=== PATIENT | male | born 1970 | race Caucasian/White ===

== ENCOUNTER 2022-12-30 10:45 | Inpatient (IN) | payer OTHER ==
[2022-12-30] MEDS ORDERED: Ondansetron PF 4 MG/2 ML Vial ONE (11:11)
[2022-12-30] MEDS ORDERED: Morphine 4 MG/ML VIAL ONE ×3 (11:11→22:18)
[2022-12-30 11:24] LABS: #Eosinphils 0.3 thou/uL (0.0-0.7); #Lymphocytes 2.6 thou/uL (1.20-3.40); #Monocytes 1.1 thou/uL (0.11-0.59); #Neutrophils 5.4 thou/uL (1.40-6.50); %Basophils 0.2 % (0.0-1.0); %Lymphocytes 27.5 % (21.0-51.0); %Monocytes 11.9 % (0.0-10.0); %Neutrophils 57.5 % (42.0-75.0); Hemoglobin 14.8 g/dL (14.0-18.0); Mean Corpuscular HGB CONC 34.2 g/dL (32.0-36.0); Mean Corpuscular Hemoglobin 32.7 pg (27.0-31.0); Mean Corpuscular Volume 95.6 fl (78.0-98.0); Mean Platelet Volume 7.9 fL (7.4-10.4); Platelet Count 178 10x3/uL (130-400); RBC Distribution Width 12.3 % (11.5-14.5); Red Blood Cell (RBC) Count 4.53 mill/uL (4.70-6.10); White Blood Cell (WBC) Count 9.3 10x3/uL (4.8-10.8)
[2022-12-30 11:37] LABS: ALT (SGPT) 49 U/L (8-55); AST (SGOT) 38 U/L (5-34); Albumin 4.3 g/dL (3.5-5.0); Alkaline Phosphatase 198 U/L (40-110); Anion Gap 12 mmol/L (10-20); BUN (Urea Nitrogen) 18 mg/dL (8.4-25.7); Bilirubin, Total 0.3 mg/dL (0.2-1.2); Calc. Creatinine Clearance 0 mL/min (70-130); Calcium 9.3 mg/dL (7.8-10.44); Carbon Dioxide 24 mmol/L (22-29); Chloride 105 mmol/L (98-107); Estimated GFR 106; Globulin 3.6 g/dL (2.4-3.5); Glucose 111 mg/dL (70-105); Lipase 295 U/L (8-78); Protein, Total 7.9 g/dL (6.0-8.3); Sodium 136 mmol/L (136-145)
[2022-12-31] MEDS ORDERED: Morphine 4 MG/ML VIAL ONE ×4 (05:46→14:41)
[2022-12-31 08:48] LABS: Troponin I Less than 0.010 ng/mL (< 0.028)
[2022-12-31] MEDS ORDERED: Piperacillin/Tazobactam 4.5 GM VIAL ONE (10:19)
[2022-12-31] MEDS ORDERED: Iopamidol-370 76% 500 ML MDV (1 ML CHARGE) ONE (12:33)
[2022-12-31] MEDS ORDERED: Calcium Carbonate 500 MG ChewTAB PO PRN (14:49)
[2022-12-31] MEDS ORDERED: Acetaminophen 325 MG TAB PO PRN (14:49)
[2022-12-31] MEDS ORDERED: Ondansetron PF 4 MG/2 ML Vial IVP PRN (14:49)
[2022-12-31 17:49] VITALS: BMI 41.4
[2022-12-31] MEDS: Sodium Chloride 0.9% 1,000 ML IV SCH ×2 (18:02→21:38)
[2022-12-31] MEDS: Piperacillin/Tazobactam 3.375 GM in Sodium Chloride 0.9% 100 ML IVPB SCH (18:02)
[2022-12-31] MEDS: Morphine 2 MG/ML VIAL SLOW IVP PRN ×2 (18:09→21:43)
[2022-12-31] MEDS: Famotidine/PF 20 mg/2ml Vial SLOW IVP SCH (21:38)
[2022-12-31] MEDS: Carvedilol 3.125 MG TAB PO SCH (21:38)
[2022-12-31] MEDS: Atorvastatin Calcium 40 MG TAB PO SCH (21:38)
[2022-12-31] MEDS: carBAMazepine 100 mg Chewable Tablet PO SCH (21:42)
[2023-01-01] MEDS: Piperacillin/Tazobactam 3.375 GM in Sodium Chloride 0.9% 100 ML IVPB SCH ×4 (00:56→23:04)
[2023-01-01] MEDS: Morphine 4 MG/ML VIAL SLOW IVP PRN ×3 (01:32→11:04)
[2023-01-01 05:53] LABS: Hemoglobin 13.7 g/dL (14.0-18.0); Mean Corpuscular Hemoglobin 33.7 pg (27.0-31.0); Mean Corpuscular Volume 96.2 fl (78.0-98.0); Mean Platelet Volume 7.6 fL (7.4-10.4); Platelet Count 165 10x3/uL (130-400); RBC Distribution Width 12.4 % (11.5-14.5); Red Blood Cell (RBC) Count 4.08 mill/uL (4.70-6.10); White Blood Cell (WBC) Count 7.8 10x3/uL (4.8-10.8)
[2023-01-01 05:54] LABS: #Eosinphils 0.3 thou/uL (0.0-0.7); #Lymphocytes 2.9 thou/uL (1.20-3.40); #Monocytes 0.9 thou/uL (0.11-0.59); #Neutrophils 3.6 thou/uL (1.40-6.50); %Basophils 0.5 % (0.0-1.0); %Eosinophils 3.4 % (0.0-10.0); %Lymphocytes 37.4 % (21.0-51.0); %Monocytes 11.9 % (0.0-10.0); %Neutrophils 46.8 % (42.0-75.0)
[2023-01-01] MEDS: Sodium Chloride 0.9% 1,000 ML IV SCH ×2 (06:04→13:00)
[2023-01-01 06:17] LABS: ALT (SGPT) 42 U/L (8-55); AST (SGOT) 35 U/L (5-34); Albumin 3.7 g/dL (3.5-5.0); Alkaline Phosphatase 143 U/L (40-110); Anion Gap 11 mmol/L (10-20); BUN (Urea Nitrogen) 15 mg/dL (8.4-25.7); Bilirubin, Total 0.6 mg/dL (0.2-1.2); Calc. Creatinine Clearance 201 mL/min (70-130); Calcium 8.9 mg/dL (7.8-10.44); Carbon Dioxide 24 mmol/L (22-29); Chloride 106 mmol/L (98-107); Estimated GFR 106; Globulin 3.1 g/dL (2.4-3.5); Glucose 86 mg/dL (70-105); Lipase 16 U/L (8-78); Magnesium 1.7 mg/dL (1.6-2.6); Potassium 3.9 mmol/L (3.5-5.1); Protein, Total 6.8 g/dL (6.0-8.3); Sodium 137 mmol/L (136-145)
[2023-01-01 06:23] LABS: Phosphorus 3.3 mg/dL (2.3-4.7)
[2023-01-01] MEDS ORDERED: Magnesium 2 GM/50 ML(in water) 2 GM in Premix Bag 1 BAG IVPB SCH (08:00)
[2023-01-01] MEDS: Famotidine/PF 20 mg/2ml Vial SLOW IVP SCH ×2 (08:41→23:02)
[2023-01-01 10:38] LABS: PTT 29.1 sec (22.9-36.1); Prothrombin Time 13.5 sec (12.0-14.7)
[2023-01-01] MEDS: carBAMazepine 100 mg Chewable Tablet PO SCH ×3 (11:17→23:03)
[2023-01-01] MEDS: Carvedilol 3.125 MG TAB PO SCH ×2 (11:17→23:03)
[2023-01-01] MEDS ORDERED: fentaNYL PF 100 MCG/2 ML SYRINGE ONE ×3 (13:44→13:56)
[2023-01-01] MEDS ORDERED: HYDROmorphone 0.5 MG/0.5 ML SYRINGE ONE ×2 (13:44→21:31)
[2023-01-01] MEDS ORDERED: SUGAMMADEX SODIUM 200 MG/2 ML VIAL ONE (13:56)
[2023-01-01] MEDS ORDERED: Bupivacaine/Epinephrine 0.25% 30 ML VIAL ONE (13:57)
[2023-01-01] MEDS ORDERED: Iopamidol 15 ML ONE (13:57)
[2023-01-01] MEDS ORDERED: fentaNYL 50 mcg/mL 1 mL Vial ONE ×8 (17:31→22:02)
[2023-01-01] MEDS ORDERED: Midazolam HCl 2 mg/2 ml Vial ONE (18:30)
[2023-01-01] MEDS ORDERED: Piperacillin/Tazobactam 3.375 GM VIAL ONE (18:35)
[2023-01-01] MEDS ORDERED: Sodium Chloride 0.9% 100 ML ONE (18:35)
[2023-01-01] MEDS ORDERED: NEOSTIGMINE 3 MG/3 ML SYR 3 MG/3 ML SYRINGE ONE (18:55)
[2023-01-01] MEDS ORDERED: Rocuronium Bromide 10 MG/ML (10ML VIAL) ONE (18:55)
[2023-01-01] MEDS ORDERED: Ondansetron PF 4 MG/2 ML Vial ONE (18:55)
[2023-01-01] MEDS ORDERED: PROPOFOL 200 MG/20 ML VIAL ONE (18:55)
[2023-01-01] MEDS ORDERED: GLYCOPYRROLATE/PF 0.2 MG/ML VIAL ONE (18:55)
[2023-01-01] MEDS ORDERED: Ketorolac Tromethamine 30 MG/ML VIAL ONE (20:52)
[2023-01-01] MEDS ORDERED: Ondansetron HCl/PF 4 MG/2 ML Vial IVP PRN (20:55)
[2023-01-01] MEDS ORDERED: Promethazine HCl 25 MG/ML VIAL IM PRN (20:55)
[2023-01-01] MEDS ORDERED: HYDROmorphone 2 MG/ML VIAL SLOW IVP PRN (20:55)
[2023-01-01] MEDS ORDERED: Acetaminophen 325 MG TAB PO SCH (21:15)
[2023-01-01] MEDS: Acetaminophen/Codeine 30-300mg Tablet PO SCH (23:03)
[2023-01-01] MEDS: Atorvastatin Calcium 40 MG TAB PO SCH (23:03)
[2023-01-02] MEDS: Acetaminophen/Codeine 30-300mg Tablet PO PRN ×3 (02:57→16:09)
[2023-01-02] MEDS: Acetaminophen/Codeine 30-300mg Tablet PO SCH ×4 (05:51→23:27)
[2023-01-02 06:00] LABS: #Eosinphils 0.2 thou/uL (0.0-0.7); #Lymphocytes 1.9 thou/uL (1.20-3.40); #Monocytes 1.1 thou/uL (0.11-0.59); #Neutrophils 6.2 thou/uL (1.40-6.50); %Basophils 0.1 % (0.0-1.0); %Eosinophils 2.5 % (0.0-10.0); %Lymphocytes 19.8 % (21.0-51.0); %Monocytes 11.9 % (0.0-10.0); %Neutrophils 65.7 % (42.0-75.0); Mean Corpuscular HGB CONC 34.6 g/dL (32.0-36.0); Mean Corpuscular Hemoglobin 33.2 pg (27.0-31.0); Mean Corpuscular Volume 95.8 fl (78.0-98.0); Mean Platelet Volume 7.7 fL (7.4-10.4); Platelet Count 199 10x3/uL (130-400); RBC Distribution Width 12.1 % (11.5-14.5); Red Blood Cell (RBC) Count 3.92 mill/uL (4.70-6.10); White Blood Cell (WBC) Count 9.4 10x3/uL (4.8-10.8)
[2023-01-02 06:23] LABS: ALT (SGPT) 41 U/L (8-55); AST (SGOT) 43 U/L (5-34); Albumin 3.6 g/dL (3.5-5.0); Alkaline Phosphatase 115 U/L (40-110); Anion Gap 9 mmol/L (10-20); BUN (Urea Nitrogen) 16 mg/dL (8.4-25.7); Bilirubin, Total 0.4 mg/dL (0.2-1.2); Calc. Creatinine Clearance 170 mL/min (70-130); Calcium 8.8 mg/dL (7.8-10.44); Carbon Dioxide 27 mmol/L (22-29); Chloride 104 mmol/L (98-107); Estimated GFR 94; Globulin 3.1 g/dL (2.4-3.5); Glucose 112 mg/dL (70-105); Lipase 13 U/L (8-78); Magnesium 1.8 mg/dL (1.6-2.6); Phosphorus 3.4 mg/dL (2.3-4.7); Potassium 4.1 mmol/L (3.5-5.1); Protein, Total 6.7 g/dL (6.0-8.3); Sodium 136 mmol/L (136-145)
[2023-01-02] MEDS: Famotidine/PF 20 mg/2ml Vial SLOW IVP SCH ×2 (09:26→21:00)
[2023-01-02] MEDS: Carvedilol 3.125 MG TAB PO SCH ×2 (09:31→21:00)
[2023-01-02] MEDS: carBAMazepine 100 mg Chewable Tablet PO SCH ×3 (09:31→21:00)
[2023-01-02] MEDS: Polyethylene Glycol 3350 17 GM Packet PO SCH (09:32)
[2023-01-02] MEDS ORDERED: Morphine 4 MG/ML VIAL SLOW IVP SCH (16:00)
[2023-01-02] MEDS: Senokot S 8.6-50 MG TAB PO PRN (17:36)
[2023-01-02] MEDS ORDERED: Acetaminophen/Codeine 30-300mg Tablet PO SCH (18:15)
[2023-01-02] MEDS: Atorvastatin Calcium 40 MG TAB PO SCH (21:00)
[2023-01-03] MEDS: Acetaminophen/Codeine 30-300mg Tablet PO SCH ×2 (06:09→12:00)
[2023-01-03 06:44] LABS: AST (SGOT) 44 U/L (5-34); Alkaline Phosphatase 124 U/L (40-110); Anion Gap 13 mmol/L (10-20); BUN (Urea Nitrogen) 10 mg/dL (8.4-25.7); Bilirubin, Total 0.6 mg/dL (0.2-1.2); Calc. Creatinine Clearance 199 mL/min (70-130); Calcium 9.5 mg/dL (7.8-10.44); Carbon Dioxide 27 mmol/L (22-29); Chloride 102 mmol/L (98-107); Estimated GFR 105; Globulin 3.2 g/dL (2.4-3.5); Glucose 101 mg/dL (70-105); Potassium 3.9 mmol/L (3.5-5.1); Protein, Total 7.2 g/dL (6.0-8.3); Sodium 138 mmol/L (136-145)
[2023-01-03 06:45] LABS: ALT (SGPT) 41 U/L (8-55); Lipase 14 U/L (8-78); Magnesium 1.7 mg/dL (1.6-2.6); Phosphorus 3.5 mg/dL (2.3-4.7)
[2023-01-03] MEDS ORDERED: Magnesium 2 GM/50 ML(in water) 2 GM in Premix Bag 1 BAG IVPB SCH (08:00)
[2023-01-03] MEDS: Senokot S 8.6-50 MG TAB PO PRN (08:56)
[2023-01-03] MEDS: carBAMazepine 100 mg Chewable Tablet PO SCH ×2 (08:56→14:48)
[2023-01-03] MEDS: Polyethylene Glycol 3350 17 GM Packet PO SCH (08:56)
[2023-01-03] MEDS: Carvedilol 3.125 MG TAB PO SCH (08:57)
[2023-01-03] MEDS: Famotidine/PF 20 mg/2ml Vial SLOW IVP SCH (08:57)
[2023-01-03 12:14] VITALS: BP 127/80; TEMP 98.1
== END 2023-01-03 15:04 | DRG 417 ==
LOC: ERS 10:45 → EEVIPCON 12-31 14:20 → ERHOLD 12-31 14:20 → SURG B 12-31 17:12
PROVIDERS: ADMIT Internal Medicine; ATTEND Internal Medicine
PROC: 0FT44ZZ Resection of Gallbladder, Percutaneous Endoscopic Approach (ICD-10-PCS; principal; 2023-01-01)
PROC: BF141ZZ Fluoroscopy of Gallbladder, Bile Ducts and Pancreatic Ducts using Low Osmolar Contrast (ICD-10-PCS; 2023-01-01)
DX: K80.00 Calculus of gallbladder with acute cholecystitis without obstruction (principal); K85.10 Biliary acute pancreatitis without necrosis or infection; Z68.41 Body mass index [BMI] 40.0-44.9, adult; K56.7 Ileus, unspecified; E66.01 Morbid (severe) obesity due to excess calories; K66.0 Peritoneal adhesions (postprocedural) (postinfection); F41.9 Anxiety disorder, unspecified; I10 Essential (primary) hypertension; I25.10 Atherosclerotic heart disease of native coronary artery without angina pectoris; G62.9 Polyneuropathy, unspecified; J44.9 Chronic obstructive pulmonary disease, unspecified; I25.2 Old myocardial infarction; Z95.5 Presence of coronary angioplasty implant and graft; Z91.030 Bee allergy status; Z79.899 Other long term (current) drug therapy; Z79.02 Long term (current) use of antithrombotics/antiplatelets
CPT/HCPCS: 36415; 36430; 47532; 71045; 71275; 74174; 74181; 76705; 80053; 83690; 83735; 83880; 84100; 84484; 85025; 85610; 85730; 86850; 86900; 86901; 88304; 93005; 96365; 96375; 96376; C1713; C1889; J1170; J1611; J1650; J1885; J2250; J2270; J2272; J2405; J2543; J2704; J3010; J3475; J3490; J7050; P9035; Q9967; S0028

== ENCOUNTER 2023-01-12 19:43 | Inpatient (IN) | payer OTHER ==
[~2023-01-12 19:43] MED LIST: Iopamidol-370 76% 500 ML MDV (1 ML CHARGE) ONE
[2023-01-12 20:55] LABS: #Eosinphils 0.3 thou/uL (0.0-0.7); #Lymphocytes 3.3 thou/uL (1.20-3.40); #Monocytes 1.1 thou/uL (0.11-0.59); #Neutrophils 4.3 thou/uL (1.40-6.50); %Basophils 0.5 % (0.0-1.0); %Eosinophils 2.9 % (0.0-10.0); %Lymphocytes 36.7 % (21.0-51.0); %Monocytes 12.6 % (0.0-10.0); %Neutrophils 47.4 % (42.0-75.0); Hemoglobin 13.3 g/dL (14.0-18.0); Mean Corpuscular HGB CONC 34.1 g/dL (32.0-36.0); Mean Corpuscular Hemoglobin 32.3 pg (27.0-31.0); Mean Corpuscular Volume 94.8 fl (78.0-98.0); Mean Platelet Volume 7.5 fL (7.4-10.4); Platelet Count 214 10x3/uL (130-400); Red Blood Cell (RBC) Count 4.12 mill/uL (4.70-6.10); White Blood Cell (WBC) Count 9.1 10x3/uL (4.8-10.8)
[2023-01-12 21:15] LABS: ALT (SGPT) 36 U/L (8-55); AST (SGOT) 30 U/L (5-34); Albumin 4.1 g/dL (3.5-5.0); Alkaline Phosphatase 162 U/L (40-110); Anion Gap 12 mmol/L (10-20); BUN (Urea Nitrogen) 24 mg/dL (8.4-25.7); Bilirubin, Total 0.2 mg/dL (0.2-1.2); Calc. Creatinine Clearance 0 mL/min (70-130); Calcium 9.2 mg/dL (7.8-10.44); Carbon Dioxide 24 mmol/L (22-29); Chloride 104 mmol/L (98-107); Estimated GFR 102; Globulin 3.1 g/dL (2.4-3.5); Glucose 115 mg/dL (70-105); Lipase 35 U/L (8-78); Potassium 4.2 mmol/L (3.5-5.1); Protein, Total 7.2 g/dL (6.0-8.3); Sodium 136 mmol/L (136-145)
[2023-01-12] MEDS ORDERED: Ondansetron PF 4 MG/2 ML Vial ONE (21:23)
[2023-01-12] MEDS ORDERED: Ketorolac Tromethamine 30 MG/ML VIAL ONE (21:23)
[2023-01-12] MEDS ORDERED: Morphine 4 MG/ML VIAL ONE (21:42)
[2023-01-12] MEDS ORDERED: Mag-Al 1200 mg/1200 mg/30 ML UDCUP ONE (23:18)
[2023-01-12] MEDS ORDERED: Lidocaine Viscous Sol 2% 15 ml UD Cup ONE (23:18)
[2023-01-13] MEDS ORDERED: Meclizine HCl 25 MG TAB PO PRN (01:38)
[2023-01-13 01:44] LABS: Troponin I Less than 0.010 ng/mL (< 0.028)
[2023-01-13] MEDS ORDERED: Ondansetron ODT 4 MG TAB SL PRN (01:45)
[2023-01-13] MEDS ORDERED: Ondansetron PF 4 MG/2 ML Vial IVP PRN (01:45)
[2023-01-13] MEDS ORDERED: Sodium Chloride 0.9% 1,000 ML IV SCH (01:45)
[2023-01-13] MEDS ORDERED: Acetaminophen 325 MG TAB ONE (02:33)
[2023-01-13] MEDS: Acetaminophen 325 MG TAB PO PRN ×2 (02:40→14:11)
[2023-01-13 04:56] LABS: #Eosinphils 0.3 thou/uL (0.0-0.7); #Lymphocytes 2.9 thou/uL (1.20-3.40); #Monocytes 0.8 thou/uL (0.11-0.59); #Neutrophils 3.2 thou/uL (1.40-6.50); %Basophils 0.5 % (0.0-1.0); %Eosinophils 3.6 % (0.0-10.0); %Monocytes 11.2 % (0.0-10.0); %Neutrophils 44.7 % (42.0-75.0); Hemoglobin 13.7 g/dL (14.0-18.0); Mean Corpuscular HGB CONC 35.8 g/dL (32.0-36.0); Mean Corpuscular Hemoglobin 34.3 pg (27.0-31.0); Mean Corpuscular Volume 95.9 fl (78.0-98.0); Mean Platelet Volume 7.7 fL (7.4-10.4); Platelet Count 214 10x3/uL (130-400); RBC Distribution Width 12.1 % (11.5-14.5); Red Blood Cell (RBC) Count 3.99 mill/uL (4.70-6.10); White Blood Cell (WBC) Count 7.2 10x3/uL (4.8-10.8)
[2023-01-13 05:22] LABS: Anion Gap 12 mmol/L (10-20); BUN (Urea Nitrogen) 23 mg/dL (8.4-25.7); Calc. Creatinine Clearance 0 mL/min (70-130); Calcium 8.8 mg/dL (7.8-10.44); Carbon Dioxide 22 mmol/L (22-29); Chloride 105 mmol/L (98-107); Estimated GFR 103; Glucose 113 mg/dL (70-105); Sodium 135 mmol/L (136-145)
[2023-01-13 05:26] LABS: Troponin I Less than 0.010 ng/mL (< 0.028)
[2023-01-13] MEDS ORDERED: Morphine 4 MG/ML VIAL ONE (05:49)
[2023-01-13] MEDS ORDERED: Ondansetron PF 4 MG/2 ML Vial ONE (05:49)
[2023-01-13] MEDS: Morphine 4 MG/ML VIAL SLOW IVP PRN ×4 (05:56→20:04)
[2023-01-13 10:25] VITALS: BMI 41.5
[2023-01-13] MEDS: Clopidogrel Bisulfate 75 MG TAB PO SCH (10:55)
[2023-01-13] MEDS: Carvedilol 6.25 MG TAB PO SCH ×2 (10:55→20:03)
[2023-01-13] MEDS: carBAMazepine 100 mg Chewable Tablet PO SCH (10:56)
[2023-01-13] MEDS: Atorvastatin Calcium 40 MG TAB PO SCH (10:56)
[2023-01-14] MEDS: Morphine 4 MG/ML VIAL SLOW IVP PRN ×5 (00:13→19:56)
[2023-01-14] MEDS: Atorvastatin Calcium 40 MG TAB PO SCH (09:57)
[2023-01-14] MEDS: Clopidogrel Bisulfate 75 MG TAB PO SCH (09:57)
[2023-01-14] MEDS: Carvedilol 6.25 MG TAB PO SCH ×2 (09:57→19:56)
[2023-01-14] MEDS: carBAMazepine 100 mg Chewable Tablet PO SCH (10:20)
[2023-01-14 10:21] LABS: ALT (SGPT) 49 U/L (8-55); AST (SGOT) 48 U/L (5-34); Albumin 4.1 g/dL (3.5-5.0); Alkaline Phosphatase 175 U/L (40-110); Bilirubin, Direct 0.3 mg/dL (0.1-0.3); Bilirubin, Total 0.3 mg/dL (0.2-1.2); Protein, Total 8.2 g/dL (6.0-8.3)
[2023-01-14] MEDS ORDERED: traMADol HCl 50 MG TAB PO SCH (23:30)
[2023-01-15] MEDS: Morphine 4 MG/ML VIAL SLOW IVP PRN ×4 (00:22→13:29)
[2023-01-15 04:27] LABS: #Basophils 0.1 thou/uL (0.0-0.2); #Eosinphils 0.3 thou/uL (0.0-0.7); #Lymphocytes 2.7 thou/uL (1.20-3.40); #Monocytes 0.9 thou/uL (0.11-0.59); #Neutrophils 3.3 thou/uL (1.40-6.50); %Basophils 0.7 % (0.0-1.0); %Eosinophils 4.4 % (0.0-10.0); %Lymphocytes 36.7 % (21.0-51.0); %Monocytes 12.7 % (0.0-10.0); %Neutrophils 45.6 % (42.0-75.0); Hemoglobin 13.7 g/dL (14.0-18.0); Mean Corpuscular HGB CONC 35.7 g/dL (32.0-36.0); Mean Corpuscular Hemoglobin 33.9 pg (27.0-31.0); Mean Corpuscular Volume 95.1 fl (78.0-98.0); Mean Platelet Volume 7.7 fL (7.4-10.4); Platelet Count 208 10x3/uL (130-400); Red Blood Cell (RBC) Count 4.03 mill/uL (4.70-6.10); White Blood Cell (WBC) Count 7.3 10x3/uL (4.8-10.8)
[2023-01-15 04:51] LABS: Anion Gap 12 mmol/L (10-20); BUN (Urea Nitrogen) 18 mg/dL (8.4-25.7); Calc. Creatinine Clearance 181 mL/min (70-130); Calcium 9.2 mg/dL (7.8-10.44); Carbon Dioxide 25 mmol/L (22-29); Chloride 102 mmol/L (98-107); Estimated GFR 102; Glucose 124 mg/dL (70-105); Potassium 3.8 mmol/L (3.5-5.1); Sodium 135 mmol/L (136-145)
[2023-01-15] MEDS: carBAMazepine 100 mg Chewable Tablet PO SCH (08:44)
[2023-01-15] MEDS: Atorvastatin Calcium 40 MG TAB PO SCH (08:44)
[2023-01-15] MEDS: Carvedilol 6.25 MG TAB PO SCH (08:44)
[2023-01-15] MEDS: Clopidogrel Bisulfate 75 MG TAB PO SCH (08:44)
[2023-01-15 11:04] LABS: ALT (SGPT) 48 U/L (8-55); AST (SGOT) 46 U/L (5-34); Albumin 3.8 g/dL (3.5-5.0); Alkaline Phosphatase 159 U/L (40-110); Bilirubin, Direct 0.2 mg/dL (0.1-0.3); Bilirubin, Total 0.3 mg/dL (0.2-1.2)
[2023-01-15 16:15] VITALS: BP 132/73; TEMP 98.2
[2023-01-15] MEDS ORDERED: Bisacodyl 5 MG TAB PO SCH (16:54)
[2023-01-15] MEDS ORDERED: Carvedilol 3.125 MG TAB PO SCH (17:00)
== END 2023-01-15 18:28 | DRG 694 ==
LOC: ERS 19:43 → EEVIPCON 01-13 01:28 → ERHOLD 01-13 01:28 → 2SW 01-13 08:30 → OBSVTOIN 01-15 09:12
PROVIDERS: ADMIT Family Medicine; ATTEND Internal Medicine
DX: N20.0 Calculus of kidney (principal); R07.9 Chest pain, unspecified; I25.10 Atherosclerotic heart disease of native coronary artery without angina pectoris; I10 Essential (primary) hypertension; E78.5 Hyperlipidemia, unspecified; G40.909 Epilepsy, unspecified, not intractable, without status epilepticus; F41.9 Anxiety disorder, unspecified; Z95.5 Presence of coronary angioplasty implant and graft; Z90.49 Acquired absence of other specified parts of digestive tract; Z98.890 Other specified postprocedural states; Z91.030 Bee allergy status; Z79.899 Other long term (current) drug therapy; I25.2 Old myocardial infarction
CPT/HCPCS: 0439T; 36415; 71275; 74177; 76700; 78452; 80048; 80053; 80076; 83690; 84484; 85025; 93005; 93017; 93306; 96372; 96374; 96375; 96376; A9500; G0378; J0153; J1650; J1885; J2270; J2405; J7050; Q9967